=== PATIENT | female | born 1965 | race Caucasian/White ===

== ENCOUNTER 2020-03-13 13:41 | Outpatient (REF) | payer OTHER, SELFPAY ==
--- NOTE | 2020-03-13 13:48 | CT_ITS ---
EXAMINATION: CT ABDOMEN AND PELVIS WITHOUT AND WITH CONTRAST CLINICAL INFORMATION: Renal hydronephrosis. COMPARISON: Renal scan 12/07/2019 and 02/09/2020 TECHNIQUE: Multidetector volumetric imaging was performed of the abdomen and pelvis before and after the IV administration of 85 mL of Omnipaque 300 intravenous contrast. Sagittal and coronal reformatted images were obtained on the technologist's workstation. This CT examination was performed using dose optimization techniques as appropriate, variously including the following: *Automated exposure control *Adjustment of mA and/or kV according to patient size (this includes techniques or standardized protocols for targeted exams where dose is matched to indication/reason for exam; i.e. extremities or head) *Use of iterative reconstruction technique DLP: 675 mGy-cm FINDINGS: LUNG BASES: The lung bases are clear. LIVER, GALLBLADDER, AND BILIARY TREE: The liver is normal in size, shape, and attenuation. No focal hepatic lesion or biliary ductal dilatation is present. The gallbladder is unremarkable with no evidence of radiopaque gallstones, gallbladder wall thickening, or obvious pericholecystic inflammatory changes. PANCREAS: Unremarkable SPLEEN: Unremarkable ADRENAL GLANDS: Unremarkable KIDNEYS AND URETERS: The kidneys are normal in size, shape, and attenuation. There is a 5 mm radiopaque calculi mid pole right kidney without caliectasis. No additional radiopaque calculi seen. The right kidney measures 9.2 cm in length and left kidney measures 8.78 cm in length. Postcontrast there are bilateral symmetrical nephrograms. There is a nonenhancing 1 cm cyst lower pole left kidney with mild cortical thinning along the upper pole. No additional cysts seen in either kidneys. The right kidney cortex is maintained normal. There is contrast opacifying both kidney pelvises and the ureter without any intraluminal filling defect. The left mid and distal ureter are not well opacified. BLADDER: There are no radiopaque or bladder calculi, bladder wall thickening or intraluminal filling defect. GASTROINTESTINAL TRACT: There is scattered stool and gas seen throughout the colon without any significant distention. The small bowel loops are normal caliber. The stomach is nondistended. There is no free air or free fluid. ABDOMINAL WALL: There is a small umbilical hernia containing fat. LYMPH NODES: Normal VASCULAR: Unremarkable PELVIC VISCERA: There is no free air free fluid. OSSEOUS STRUCTURES: No lytic or sclerotic process. CT/CT abdomen pelvis wo/w con IMPRESSION: 1. Nonobstructive 5 mm radiopaque calculi mid pole right kidney. 2. Mild cortical thinning upper pole left kidney but kidney size appears almost symmetrical bilaterally. No enhancing renal mass or hydronephrosis.
[2020-03-13] MEDS: iohexoL 350 MG/ML 100 ML INFUS..BTL IV (15:41)
== END 2020-03-13 13:42 | disposition home or self-care (01) ==
LOC: HO.CT 13:41
PROVIDERS: PCP Internal Medicine; Visit Provider Urology
DX: N13.39 Other hydronephrosis (principal)
CPT/HCPCS: 74178

== ENCOUNTER → 2020-03-30 09:12 | Outpatient (BNVA) | payer OTHER, SELFPAY | PROVIDERS: PCP Internal Medicine; Visit Provider Urology | DX: N13.30 Unspecified hydronephrosis (principal) | CPT/HCPCS: 99212 ==

== ENCOUNTER → 2020-09-22 08:47 | Outpatient (BNVA) | payer OTHER, SELFPAY | PROVIDERS: PCP Internal Medicine; Visit Provider Urology | CPT/HCPCS: 99212 ==

== ENCOUNTER → 2023-03-20 12:45 | Outpatient (BNVA) | payer MEDICAID, SELFPAY | PROVIDERS: PCP Internal Medicine; Visit Provider Registered Nurse Emergency ==

== ENCOUNTER 2024-06-01 14:47 | Outpatient (AMB) | payer OTHER, SELFPAY ==
--- NOTE | 2024-06-01 15:12 | MHC.OFFVIS ---
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 The patient states that she has had 2 cortisone injections in the past which gave her no relief. She has tried physical therapy exercises which aggravated her pain. Her symptoms have gotten worse over the last few years in spite of continued non operative treatments. She has tried Tylenol, Robaxin, gabapentin and topical patches which gave her only mild relief. She did undergo cervical spine surgery in 2007 while living in [place]. Allergies cephalexin [Keflex] Allergy (Unknown, Verified 06/01/24 15:13) Unknown ciprofloxacin [Cipro] Allergy (Unknown, Verified 06/01/24 15:13) Unknown nitrofurantoin [Macrobid] Allergy (Unknown, Verified 06/01/24 15:13) Unknown penicillin V Allergy (Unknown, Verified 06/01/24 15:13) Unknown Medication List - Last Reconciled 06/01/24 by Sid Mejia MD clonidine HCl 0.1 mg PO BEDTIME duloxetine 30 mg PO DAILY gabapentin 900 mg PO BEDTIME lidocaine 5% 2 patches topical DAILY lorazepam mg PO meloxicam 15 mg PO DAILY pyridoxine (vitamin B6) 100 mg PO DAILY 90 days trazodone 100 mg PO BEDTIME zolpidem ER 12.5 mg PO BEDTIME [facility] Medical History (Updated 06/01/24 @ 15:31 by Sid Mejia MD) History of kidney infection Dysuria Right renal stone Left renal stone Other hydronephrosis Surgical History (Updated 05/28/24 @ 09:47 by AMMY Clarke) Hx of shoulder surgery History of carpal tunnel release of both wrists History of surgery Social History (Updated 06/01/24 @ 15:14 by AMMY Clarke) Patient Tobacco Use Status: Never used Tobacco Current occupational status: disabled Current occupation: rt handed Physical Exam Vital Signs: BMI result Body Mass Index 28.5 Const Other: Well-nourished well-developed very friendly female awake alert and oriented x3 in no acute distress Back/Spine/Pelvis Other: Low back examination shows right-sided paraspinal muscle tenderness, pain with range of motion, positive straight leg raise test on the right at 70 degrees, 4/5 strength with testing of her right hip flexors and knee extensors when compared to 5/5 strength on her left side Extrem Other: Right hip examination shows full range of motion when compared to her left hip, mild tenderness over her bursa, no overlying skin lesions Results Reviewed Results Reviewed: X-rays of the patient's right hip show mild diffuse joint space narrowing, no acute bony abnormalities Assessment & Plan Assessment & Plan (1) Low back pain radiating to right leg: Code(s): M54.50 - Low back pain, unspecified; M79.604 - Pain in right leg Category: Medical Plan Ms. Esparza presents with progressively worsening low back pain which radiates down her right leg most likely due to lumbar stenosis or a disc herniation. She also has intermittent right hip discomfort due to greater trochanteric bursitis. At this point the patient's hip pain is tolerable to her. I will send the patient for an MRI of her lumbar spine for further evaluation. I will see her back once the MRI is completed to discuss the findings. She will contact me prior to that time should any questions or concerns arise. Feel free to call me at any time should questions regarding her orthopedic management arise. I spent 21 minutes in reviewing the patient's records and imaging studies, seeing the patient and documenting in the medical record. Orders: Orders MR lumbar spine wo con Today M54.50 - Low back pain, unspecified, M79.604 - Pain in right leg XR knee LT 3V Today M25.562 - Pain in left knee Coding Level of Care Code New Pt Level 3 (85653) Complex EM visit Add On G2211 Diagnoses Low back pain radiating to right leg M54.50; M79.604
[2024-06-01 15:13] VITALS: BMI 28.5
== END 2024-06-01 15:30 | disposition home or self-care (01) ==
PROVIDERS: PCP Internal Medicine; Visit Provider Orthopaedic Surgery
DX: M54.50 Low back pain, unspecified (principal); M79.604 Pain in right leg
CPT/HCPCS: 99203; G2211

== ENCOUNTER 2024-06-01 15:01 | Outpatient (REF) | payer OTHER, SELFPAY ==
--- NOTE | ~2024-06-01 | XR_ITS ---
EXAMINATION: XR HIP 2 OR MORE VIEWS RIGHT HISTORY: M25.559 - Pain in unspecified hip COMPARISON: There are no prior studies available for comparison. FINDINGS: A single AP view of the pelvis and an additional view of the right hip are submitted. Osseous mineralization is normal. There is no fracture or dislocation. There is mild joint space narrowing. The soft tissues are unremarkable. XR/XR hip RT min 2V IMPRESSION: Mild joint space narrowing. Electronically signed by: Yusuf French MD 06/03/2024 02:40 PM [facility] BATIST[facility]
== END 2024-06-01 15:02 | disposition home or self-care (01) ==
LOC: HO.HOSX 15:01
PROVIDERS: Visit Provider Orthopaedic Surgery
DX: M25.561 Pain in right knee (principal); M54.50 Low back pain, unspecified; M79.604 Pain in right leg
CPT/HCPCS: 73502; 99202

== ENCOUNTER 2024-06-25 18:32 | Outpatient (REF) ==
--- NOTE | ~2024-06-25 | MR_ITS ---
MR/MR lumbar spine wo con IMPRESSION: Multilevel thoracolumbar spondylosis more conspicuous at L4-5 without compression upon neural elements. Electronically signed by: Dandy Bray MD 06/28/2024 07:59 AM CANDY
== END 2024-06-25 18:33 | disposition home or self-care (01) ==
LOC: HO.MRI 18:32
DX: M54.50 Low back pain, unspecified (principal); M79.604 Pain in right leg
CPT/HCPCS: 72148

== ENCOUNTER → 2024-06-25 18:32 | Outpatient (BNV) | payer OTHER, SELFPAY | PROVIDERS: PCP Internal Medicine; Visit Provider Radiology Diagnostic Radiology | DX: M47.896 Other spondylosis, lumbar region (principal) | CPT/HCPCS: 72148 ==

== ENCOUNTER 2024-07-15 11:12 | Outpatient (AMB) | payer OTHER, SELFPAY ==
[2024-07-15 11:19] VITALS: BMI 28.5
--- NOTE | 2024-07-15 11:19 | A.OFFVIS_ITS ---
Vital Signs 07/15/24 11:19 Height 5 ft 5 in Weight 171 lb BMI 28.5 Intake Visit Reasons: OV- Lumbar Spine MRI review Intake Note: Renae is a 59 year old female who presents with complaints of progressively worsening low back pain which radiates down her right leg as well as intermittent pain along the lateral aspect of her right hip. The patient states that she has had 2 cortisone injections in the past which gave her no relief. She has tried physical therapy exercises which aggravated her pain. Her symptoms have gotten worse over the last few years in spite of continued non operative treatments. She has tried Tylenol, Robaxin, gabapentin and topical patches which gave her only mild relief. She did undergo cervical spine surgery in 2007 while living in [place]. Allergies cephalexin [Keflex] Allergy (Unknown, Verified 07/15/24 11:19) Unknown ciprofloxacin [Cipro] Allergy (Unknown, Verified 07/15/24 11:19) Unknown nitrofurantoin [Macrobid] Allergy (Unknown, Verified 07/15/24 11:19) Unknown penicillin V Allergy (Unknown, Verified 07/15/24 11:19) Unknown Medication List - Last Reconciled 07/15/24 by Sid Mejia MD clonidine HCl 0.1 mg PO BEDTIME duloxetine 30 mg PO DAILY gabapentin 900 mg PO BEDTIME lidocaine 5% 2 patches topical DAILY lorazepam mg PO meloxicam 15 mg PO DAILY methylprednisolone (Medrol (Giovani)) PO PER PKG DIR pyridoxine (vitamin B6) 100 mg PO DAILY 90 days trazodone 100 mg PO BEDTIME zolpidem ER 12.5 mg PO BEDTIME [facility] Medical History (Updated 06/01/24 @ 15:31 by Sid Mejia MD) History of kidney infection Dysuria Right renal stone Left renal stone Other hydronephrosis Surgical History (Updated 05/28/24 @ 09:47 by AMMY Clarke) Hx of shoulder surgery History of carpal tunnel release of both wrists History of surgery Social History (Updated 06/01/24 @ 15:14 by AMMY Clarke) Patient Tobacco Use Status: Never used Tobacco Current occupational status: disabled Current occupation: rt handed Physical Exam Vital Signs: BMI result Body Mass Index 28.5 Const Other: Well-nourished well-developed very friendly female awake alert and oriented x3 in no acute distress Back/Spine/Pelvis Other: Low back examination shows right-sided paraspinal muscle tenderness, positive straight leg raise test on the right at 70 degrees, pain with range of motion Results Reviewed Results Reviewed: MRI report of the patient's lumbar spine shows evidence of diffuse degenerative disc disease, thecal sac narrowing, no acute bony abnormalities Assessment & Plan Assessment & Plan (1) Low back pain radiating to right leg: Code(s): M54.50 - Low back pain, unspecified; M79.604 - Pain in right leg Category: Medical Plan Ms. Esparza presents with low back pain which radiates down her right leg most likely due to degenerative disc disease. Thus, I will have the patient evaluated in our neurosurgery department here at [facility]. She will contact me prior to that time should her symptoms worsen in any way. Feel free to call me at any time should questions regarding her orthopedic management arise. I spent 20 minutes in reviewing the patient's records and imaging studies, seeing the patient and documenting in the medical record. Orders: Referrals Neuro Spine Referral M54.50 - Low back pain, unspecified, M79.604 - Pain in right leg Coding Level of Care Code Est Pt Level 3 (71220) Complex EM visit Add On G2211 Diagnoses Low back pain radiating to right leg M54.50; M79.604
--- OUTSIDE RECORDS SUMMARY | 2024-07-15 13:32 | XMS_ITS | Encounter Summary ---
Author Organization [facility] Address [address] [place] [address] Care Team Providers Care Hop Strainer Name Role Phone Ip Use Only - [facility] Primary Care Provider Unavailable Encounter Details Date Type Department Care Team (Late st Contact Info) Description 02/21/2020 Scanned Document [facility] Urologic Surgery [address] [place] [address] Coleman Saenz MD [address] [place] [address] [phone] Social History Tobacco Use Types Packs/Day Years Used Date Smoking Tobacco: Never Assessed Sex and Gender Information Value Date Recorded Sex Assigned at Not on file Gender Identity Not on file Sexual Orientation Not on file documented as of this encounter Plan of Treatment Not on file documented as of this encounter Visit Diagnoses Not on filedocumented in this encounter Care Teams Hop Strainer Relationship Specialty Start Date End Date Ip Use Only - [facility] PCP - General Internal Medicine 02/15/20 documented as of this encounter
--- OUTSIDE RECORDS SUMMARY | 2024-07-15 13:32 | XMS_ITS | Clinical Summary ---
Author Organization [facility] [address] [facility] Address [address] [place] [address] Phone Care Team Providers Care Veneer Glue Spreader Name Role Phone Unavailable Primary Care Provider Unavailabl e Allergies Active Allergy Reactions Criticality Noted Date Comments Cephalexin Monohydrate 04/09/2013 Ciprofloxacin 04/09/2013 Penicillins 04/09/2013 Medications norethindrone-e thinyl estradiol (June,) 1-20 mg-mcg per tablet Take 1 tablet by mouth 1 (one) time each day. 03/15/2015 Active citalopram (CeleXA) 10 mg tablet Take 3 tablets (30 mg total) by mouth 1 (one) time each day. 11/01/2013 Active potassium citrate (UROCIT-K) 5 mEq (540 mg) CR tablet Take by mouth. Active zolpidem (AMBIEN) 10 mg tablet Take 1 Tab by mouth at bedtime as needed for Insomnia. 10/26/2013 Active Active Problems Problem Noted Date Diagnosed Date Carpal tunnel syndrome of right wrist 04/13/2013 Overview (07/02/2024): Mild, EMG in [place] to 01/01/10 Chronic right shoulder pain 04/13/2013 Overview (07/02/2024): 12/2007, s/p right shoulder subacromial decompression, distal clavicle excision, labral and biceps debridement, Dr Mendieta in [place] Macrocytosis without anemia 04/13/2013 Overview (07/02/2024): MCV 102 from labs in October 2012 Chronic back pain 04/09/2013 Chronic neck pain 04/09/2013 Major depression 04/09/2013 Nephrolithiasis 04/09/2013 Encounters Date Type Department Care Team Description 07/06/2024 Telephone Gastroenterology - [address] [place] [address] Em King MA 06/18/2024 Telephone Gastroenterology - [address] [place] [address] Roderick Rojas MD 06/18/2024 Telephone Gastroenterology - [address] [place] [phone] Ed Alonzo MA 06/17/2024 Telephone Gastroenterology - [address] [place] [phone] Ed Alonzo MA from Last 3 Months Immunizations Name Administration Dates Next Due Tdap Tetanus diptheria acell ular pertussis (Boostrix; Adacel) 7yo and older 09/02/2013 Surgical History Surgery Date Site/Laterality Comments LITHOTRIPSY PROCEDURE: HISTORICAL LITHOTRIPSY; COMMENT: 1996, 2007, 5 lifetime episodes OTHER SURGICAL HISTORY 2008 PROCEDURE: [place] ARTHRD ANT INTERBODY MIN DSC CRV BELOW C2; COMMENT: C6-7-T1 ant discectomy w/decomp, darlin C6-T1, C7 complete corpectomy he is this SHOULDER SURGERY 12/2007 PROCEDURE: HISTORICAL SHOULDER SURGERY; COMMENT: Subacromial decompression, clavicle excision, labral and biceps debrided Family History Medical History Relation Name Comments Other: healthy Brother 1 Lung cancer Father smoker Other cancer Maternal Grandfather Leukemi a Other: Emphysema Maternal Grandmother Lung cancer Paternal Grandfather Other: unknown Paternal Grandmother Diabetes Sister 1 HTN Hypertension Sister 2 Other: healthy Sister 3 Relation Name Status Comments Brother 1 Brother 2 Alive Father lung ca, smoker Maternal Grandfather Maternal Grandmother Paternal Grandfather Paternal Grandmother Sister 1 Sister 2 Sister 3 Sister 4 Alive X3 Social History Tobacco Use Types Packs/Day Years Used Date Smoking Tobacco: Never Smokeless Tobacco: Never Alcohol Use Standard Drinks/Week Comments Yes 0 (1 standard drink = 0.6 oz pur e alcohol) Comments Unknown Sex and Gender Information Value Date Recorded Sex Assigned at Not on file Legal Sex Female 1:21 AM EST Gender Identity Not on file Sexual Orientation Not on file Obstetrics History Plan of Treatment Upcoming Encounters Date Type Department Care Team ([facility] st Contact Info) Description 07/29/2024 12:40 PM EDT Office Visit Gastroenterology - 299 [facility] [address] [phone] Daria Cartwright PA [address] [address] 08/17/2024 1:00 PM EDT Hospital Encounter [facility] [address] [place] [phone] Roderick Rojas MD [address] [address] Health Maintenance Due Date Last Done Comments Hepatitis B Vaccines (1 of 3 - 19+ 3-dose series) 1984 Pneumococcal Vaccine: 50+ Years (1 of 1 - PCV) 2015 Zoster Vaccines (1 of 2) 2015 Cervical Cancer Screening: P ap Smear 11/15/2016 11/15/2013, 11/15/2013 Colorectal Cancer Screening: Colonoscopy 04/21/2022 Depression Screening 04/21/2022 HIV Screening 04/21/2022 Hepatitis C Screening 04/21/2022 Social Influencers of Health Screening 04/21/2022 DTaP,Tdap,and Td Vaccines (2 - Td or Tdap) 09/03/2023 09/02/2013 COVID-19 Vaccine ( - 2023-2 5 season) 2024 Influenza Vaccine (#1) 2024 Breast Cancer Screening 09/25/2025 09/26/19 24, 03/16/2021 RSV Immunization Patients 60 + Years Old (1 - 1-dose 75+ series) 2040 HIB Vaccines Aged Out No longer eligi ble based on patient's age to complete this topic HPV Vaccines Aged Out No longer eligi ble based on patient's age to complete this topic Hepatitis A Vaccines Aged Out No long er eligible based on patient's age to complete this topic IPV Vaccines Aged Out No longer eligi ble based on patient's age to complete this topic MMR Vaccines Aged Out No longer eligi ble based on patient's age to complete this topic Meningococcal ACWY Vaccine Aged Out N o longer eligible based on patient's age to complete this topic Meningococcal B Vacine Aged Out No lo nger eligible based on patient's age to complete this topic Pneumococcal Vaccine: Pediatrics (0 to 5 Years) and At-Risk Patients (6 to 64 Years) Aged Out No longer eligible b ased on patient's age to complete this topic RSV Immunization Patients Under 20 months Aged Out No longer eligible b ased on patient's age to complete this topic Varicella Vaccines Aged Out No longer eligible based on patient's age to complete this topic Procedures Procedure Name Priority Date/Time Associated Diagnosis Comments EXTERNAL CT REPORT 06/25/[address] REPORT 06/10/2024 [facility] SCREENING DIGITAL Routine 09/26/2023 2:32 PM EDT Encounter for screening mammogram for malignant neoplasm of breast HPV Routine 11/15/2013 from Last 3 Months or Most Recently Relevant to Health Maintenance Results * External CT Report (06/25/2024) Only the most recent of2 resultswithin the time period is included. Anatomical Region Laterality Modality Computed Tomogra phy us Provider [facility] IM CT PROCEDURES Final Result * [facility] SCREENING DIGITAL (09/26/2023 2:32 PM EDT) Anatomical Region Laterality Modality Mammography 09/26/2023 1:59 PM EDT Narrative 09/26/2023 2:32 PM EDT [facility] Diagnostic Imaging Department [address] [place] [address] Patient: ??CHRISTINE ESPARZA ?/Age/Sex: 1965 - 58 - F Unit#: ??[id number] ? Location/Status: ??SPDIMAM/REG CLI ? Mnemonic/Ordering Site: ??DIGSC/SPMAM Ordering Physician: ??KAVON AZAR MD [facility] Screening Digital - 09/26/23 - 1421 Report Status:Signed EXAM: [facility] Screening Digital EXAM DATE AND TIME: 09/26/2023 2:22 PM HISTORY: ??Annual screening COMPARISON: ??Multiple exams dating back to 2012 TECHNIQUE: Bilateral digital breast tomosynthesis was performed in the CC and MLO projections. Computer aided detection with GILUPI 3D 3.1 was employed. TISSUE DENSITY: b. There are scattered areas of fibroglandular density. FINDINGS: No suspicious masses, grouped microcalcifications, or areas of architectural distortion are seen. The skin and vascularity are unremarkable. IMPRESSION: Stable mammographic appearance of the breasts. ??No evidence of malignancy is seen. A negative mammogram in the presence of a clinically suspicious palpable abnormality does not preclude the possibility of malignancy or alter the indications for biopsy. BI-RADS: ??Category 1: Negative RECOMMENDATION(S): 1: Routine screening mammogram BILATERAL in 1 year. 3341F, 7025F Dictating Physician: ??CHRISTI CARROLL MD Electronically Signed by: ??CHRISTI CARROLL MD Dic Date/Time: ??09/26/23 1431 Sign date/Time: ??09/26/23 1432 Procedure Note Christi Carroll MD - 01/05/2024 [facility] Diagnostic Imaging Department [address] [place] [id number] Patient: CHRISTINE ESPARZA.O.B./Age/Sex: 1965 - 58 - F Unit#: [id number] Location/Status: SPDIMAM/REG CLI Mnemonic/Ordering Site: [facility] Ordering Physician: KAVON AZAR MD [facility] Screening Digital - 09/26/23 - 1421 Report Status:Signed EXAM: [facility] Screening Digital EXAM DATE AND TIME: 09/26/2023 2:22 PM HISTORY: Annual screening COMPARISON: Multiple exams dating back to 2012 TECHNIQUE: Bilateral digital breast tomosynthesis was performed in the CCand MLO projections. Computer aided detection with GILUPI 3D 3.1was employed. TISSUE DENSITY: b. There are scattered areas of fibroglandular density. FINDINGS: No suspicious masses, grouped microcalcifications, or areas ofarchitectural distortion are seen. The skin and vascularity are unremarkable. IMPRESSION: Stable mammographic appearance of the breasts. No evidence of malignancyis seen. A negative mammogram in the presence of a clinically suspicious palpable abnormality does not preclude the possibility of malignancy or alter the indications for biopsy. BI-RADS: Category 1: Negative RECOMMENDATION(S): 1: Routine screening mammogram BILATERAL in 1 year. 3341F, 7025F Dictating Physician: CHRISTI CARROLL MD Electronically Signed by: CHRISTI CARROLL MD Dic Date/Time: 09/26/23 143 Sign date/Time: 09/26/23 143 Kavon Azar MD IMG BI PROCEDURES Final Result * Hm Cervical Cancer Screening: HPV (11/15/2013) Cervical Cancer Screening: HPV negative, abstracted us Historical Provider HEALTH MAINTENANCE Final Result from Last 3 Months or Most Recently Relevant to Health Maintenance Insurance [facility] Member Subscriber Plan / Payer (Ef fective 2023-Present) Name:Christine Esparza Relation to Subscriber:Self Name:Christine Esparza Payer ID:[id number] Group ID:[id number] Type:Not on file Address: [place] [address] [address] [id number]
--- OUTSIDE RECORDS SUMMARY | 2024-07-15 13:32 | XMS_ITS | Encounter Summary ---
Author Organization [facility] Address [address] [place] [address] Care Team Providers Care Water Main Installer Helper Name Role Phone Ip Use Only - [facility] Primary Care Provider Unavailable Encounter Details Date Type Department Care Team (Late st Contact Info) Description 02/21/2020 Scanned Document [facility] Urologic Surgery [address] [place] [address] Coleman Saenz MD [address] [place] [phone] Social History Tobacco Use Types Packs/Day Years Used Date Smoking Tobacco: Never Assessed Sex and Gender Information Value Date Recorded Sex Assigned at Not on file Gender Identity Not on file Sexual Orientation Not on file documented as of this encounter Plan of Treatment Not on file documented as of this encounter Visit Diagnoses Not on filedocumented in this encounter Care Teams Water Main Installer Helper Relationship Specialty Start Date End Date Ip Use Only - [facility] PCP - General Internal Medicine 02/15/20 documented as of this encounter
--- OUTSIDE RECORDS SUMMARY | 2024-07-15 13:32 | XMS_ITS | Encounter Summary ---
Author Organization [facility] [place] [address] Care Team Providers Care Grain Oilseed Or Pasture Farm Worker Name Role Phone Unavailable Primary Care Provider Unavailabl e Encounter Details Date Type Department Care Team (Late st Contact Info) Description 07/06/2024 Telephone Gastroenterology - [address] [place] [phone] Em King MA Social History Tobacco Use Types Packs/Day Years [...] on file documented as of this encounter Progress Notes * Em King MA - 07/06/2024 11:55 AM EST Spoke to Dr. Lashawn EUBANKS and msg below given. * Em King MA - 07/06/2024 11:55 AM EST ----- Message from Lizeth Rojas MD sent at 07/05/2024 3:11 PM EST ----- Please let Dr Kavon Yoo's nurse/PA know that the CT looks as expected after cholecystectomy. He ordered the CT but we are happy to see if there are ongoing GI issues (eg abd pain) ty documented in this encounter Plan of Treatment Upcoming Encounters Date Type Department Care Team (Late st Contact Info) Description 07/29/2024 12:40 PM EDT Office Visit Gastroenterology - 299 [facility] [address] [phone] Daria Cartwright PA [address] [address] 08/17/2024 1:00 PM EDT Hospital Encounter [facility] Endoscopy [address] [place] [phone] Roderick Rojas MD [address] [address] documented as of this encounter Visit Diagnoses Not on filedocumented in this encounter
--- OUTSIDE RECORDS SUMMARY | 2024-07-15 13:32 | XMS_ITS | Encounter Summary ---
Author Organization [facility] Address [address] [place] [address] Care Team Providers Care Set Up Worker Name Role Phone Unavailable Primary Care Provider Unavailabl e Encounter Details Date Type Department Care Team (Late Contact Info) Description 06/18/2024 Telephone Gastroenterology - 299 [facility] [address] [phone] Roderick Rojas MD [address] [address] Social History Tobacco Use Types Packs/Day Years [...] as of this encounter Progress Notes * Ed Alnozo MA - 07/09/2024 3:13 PM EST N/a documented in this encounter Plan of Treatment Upcoming Encounters Date Type Department Care Team (Late Contact Info) Description 07/29/2024 12:40 PM EDT Office Visit Gastroenterology - 299 [address] [facility] [address] [phone] Daria Cartwright PA [address] [address] 08/17/2024 1:00 PM EDT Hospital Encounter [facility] Endoscopy [address] [place] [phone] Roderick Rojas MD [address] [address] documented as of this encounter Visit Diagnoses Diagnosis Colon cancer screening- Primary Special screening for malignant neoplasms, colon documented in this encounter
--- OUTSIDE RECORDS SUMMARY | 2024-07-15 13:32 | XMS_ITS | Clinical Summary ---
Author Organization [facility] Address [address] [place] [address] Care Team Providers Care Operating Room Nurse Name Role Phone Ip Use Only - [facility] Primary Care Provider Unavailable Social History Tobacco Use Types Packs/Day Years Used Date Smoking Tobacco: Never Assessed Sex and Gender Information Value Date Recorded Sex Assigned at Not on file Gender Identity Not on file Sexual Orientation Not on file Plan of Treatment Health Maintenance Due Date Last Done Comments Hepatitis C Virus Screening 1965 HIV Screening 1978 DTaP/Tdap/Td Vaccines (1 - Tdap) 1984 Hepatitis B Vaccines (1 of 3 - 19+ 3-dose series) 1984 Pap Smear (Ages 21-65) 1986 Mammogram 2005 Colonoscopy 2010 Pneumococcal Vaccines 50+ (1 of 1 - PCV) 2015 Zoster (Shingles) Vaccine (1 of 2) 2015 Influenza Vaccine 12/18/2023 COVID-19 Vaccine ( - 2023-2 5 season) 2024 Pneumococcal Vaccine: Pediat paulie (0-5 Years) and At-Risk Patients (6 to 49 Years) Aged Out No longer eligible b ased on patient's age to complete this topic Care Teams Operating Room Nurse Relationship Specialty Start Date End Date Ip Use Only - [facility] PCP - General Internal Medicine 02/15/20
--- OUTSIDE RECORDS SUMMARY | 2024-07-15 13:32 | XMS_ITS | Encounter Summary ---
Author Organization [facility] Address [address] [place] [address] Care Team Providers Care Pipeline Executive Name Role Phone Ip Use Only - [facility] Primary Care Provider Unavailable Encounter Details Date Type Department Care Team (Late st Contact Info) Description 02/21/2020 Scanned Document [facility] Urologic Surgery [address] [place] [address] Coleman Saenz MD [address] [place] [address] [phone] Social History Tobacco Use Types Packs/Day Years Used Date Smoking Tobacco: Never Assessed Sex and Gender Information Value Date Recorded Sex Assigned at Not on file Gender Identity Not on file Sexual Orientation Not on file documented as of this encounter Plan of Treatment Not on file documented as of this encounter Visit Diagnoses Not on filedocumented in this encounter Care Teams Pipeline Executive Relationship Specialty Start Date End Date Ip Use Only - [facility] PCP - General Internal Medicine 02/15/20 documented as of this encounter
--- OUTSIDE RECORDS SUMMARY | 2024-07-15 13:32 | XMS_ITS | Encounter Summary ---
Author Organization [facility] Address [address] [place] [address] Care Team Providers Care Property Coordinator Name Role Phone Ip Use Only - [facility] Primary Care Provider Unavailable Encounter Details Date Type Department Care Team (Late st Contact Info) Description 02/21/2020 Scanned Document [facility] Urologic Surgery [address] [place] [address] Coleman Saenz MD [address] [place] [address] [phone] Social History Tobacco Use Types Packs/Day Years Used Date Smoking Tobacco: Never Assessed Sex and Gender Information Value Date Recorded Sex Assigned at Not on file Gender Identity Not on file Sexual Orientation Not on file documented as of this encounter Plan of Treatment Not on file documented as of this encounter Visit Diagnoses Not on filedocumented in this encounter Care Teams Property Coordinator Relationship Specialty Start Date End Date Ip Use Only - [facility] PCP - General Internal Medicine 02/15/20 documented as of this encounter
--- OUTSIDE RECORDS SUMMARY | 2024-07-15 13:32 | XMS_ITS | Encounter Summary ---
Author Organization [facility] Address [address] [place] [address] Care Team Providers Care Manager Tax Name Role Phone Ip Use Only - [facility] Primary Care Provider Unavailable Encounter Details Date Type Department Care Team (Late st Contact Info) Description 02/21/2020 Scanned Document [facility] Urologic Surgery [address] [place] [address] Coleman Saenz MD [address] [place] [address] [phone] Social History Tobacco Use Types Packs/Day Years Used Date Smoking Tobacco: Never Assessed Sex and Gender Information Value Date Recorded Sex Assigned at Not on file Gender Identity Not on file Sexual Orientation Not on file documented as of this encounter Plan of Treatment Not on file documented as of this encounter Visit Diagnoses Not on filedocumented in this encounter Care Teams Manager Tax Relationship Specialty Start Date End Date Ip Use Only - [facility] PCP - General Internal Medicine 02/15/20 documented as of this encounter
--- OUTSIDE RECORDS SUMMARY | 2024-07-15 13:32 | XMS_ITS | Encounter Summary ---
Author Organization [facility] Address [address] [place] [address] Care Team Providers Care First Calender Worker Name Role Phone Unavailable Primary Care Provider Unavailabl e Encounter Details Date Type Department Care Team (Late Contact Info) Description 06/17/2024 Telephone Gastroenterology - [address] [place] [phone] Ed Alonzo MA Social History Tobacco Use Types Packs/Day [...] of this encounter Progress Notes * Ed Alonzo MA - 06/17/2024 3:29 PM EST CALLED PT TO R/S COLON DR. ROJAS PT. LMOM documented in this encounter Plan of Treatment Upcoming Encounters Date Type Department Care Team (Late st Contact Info) Description 07/29/2024 12:40 PM EDT Office Visit Gastroenterology - 299 [address] [phone] Daria Cartwright PA [address] [address] 08/17/2024 1:00 PM EDT Hospital Encounter [facility] Endoscopy [address] [place] [phone] Roderick Rojas MD 229 [facility] [address] [place] [address] documented as of this encounter Visit Diagnoses Not on filedocumented in this encounter
--- OUTSIDE RECORDS SUMMARY | 2024-07-15 13:32 | XMS_ITS | Encounter Summary ---
Author Organization [facility] Address [address] [place] [address] Care Team Providers Care Stile Ripsaw Operator Name Role Phone Unavailable Primary Care Provider Unavailabl e Encounter Details Date Type Department Care Team (Late st Contact Info) Description 06/18/2024 Telephone Gastroenterology - [address] [place] [phone] Ed Alonzo MA Social History Tobacco Use [...] as of this encounter Progress Notes * Annabel Dalton - 06/18/2024 11:03 AM EST RETURNING CALL * Ed Alonzo MA - 06/18/2024 10:54 AM EST CALLED PT 2ND TIME TO SCHEDULE COLON. LMOM. documented in this encounter Plan of Treatment Upcoming Encounters Date Type Department Care Team (Late st Contact Info) Description 07/29/2024 12:40 PM EDT Office Visit Gastroenterology - [address] [place] [phone] Daria Cartwright PA [address] [address] 08/17/2024 1:00 PM EDT Hospital Encounter [facility] Endoscopy [address] [place] [phone] Roderick Rojas MD [address] [address] documented as of this encounter Visit Diagnoses Not on filedocumented in this encounter
--- OUTSIDE RECORDS SUMMARY | 2024-07-15 13:32 | XMS_ITS | Encounter Summary ---
Author Organization [facility] Address [address] [place] [address] Care Team Providers Care Multimedia Author Name Role Phone Ip Use Only - [facility] Primary Care Provider Unavailable Encounter Details Date Type Department Care Team (Late st Contact Info) Description 02/21/2020 Scanned Document [facility] Urologic Surgery [address] [place] [address] Coleman Saenz MD [address] [place] [address] [phone] Social History Tobacco Use Types Packs/Day Years Used Date Smoking Tobacco: Never Assessed Sex and Gender Information Value Date Recorded Sex Assigned at Not on file Gender Identity Not on file Sexual Orientation Not on file documented as of this encounter Plan of Treatment Not on file documented as of this encounter Visit Diagnoses Not on filedocumented in this encounter Care Teams Multimedia Author Relationship Specialty Start Date End Date Ip Use Only - [facility] PCP - General Internal Medicine 02/15/20 documented as of this encounter
== END 2024-07-15 11:58 | disposition home or self-care (01) ==
PROVIDERS: PCP Internal Medicine; Visit Provider Orthopaedic Surgery
DX: M54.50 Low back pain, unspecified (principal); M79.604 Pain in right leg
CPT/HCPCS: 99213

== ENCOUNTER → 2024-07-15 11:12 | Outpatient (BNVA) | payer OTHER, SELFPAY | PROVIDERS: PCP Internal Medicine; Visit Provider Orthopaedic Surgery | DX: M54.50 Low back pain, unspecified (principal); M79.604 Pain in right leg | CPT/HCPCS: 99212 ==

== ENCOUNTER 2024-07-16 10:17 | Outpatient (AMB) | payer OTHER, SELFPAY ==
[2024-07-16 10:33] VITALS: BMI 23.0
--- NOTE | 2024-07-16 10:33 | A.SPINEOV_ITS ---
Vital Signs 07/16/24 10:33 Height 5 ft 5 in Weight 138 lb BMI 23.0 Intake Visit Reasons: LBP Intake Note: Ms. Esparza is here today c/o low back pain. Rotor Casting Machine Setup Operator Required: No Allergies cephalexin [Keflex] Allergy (Severe, Verified 07/16/24 10:35) Rash ciprofloxacin [Cipro] Allergy (Severe, Verified 07/16/24 10:35) Rash nitrofurantoin [Macrobid] Allergy (Severe, Verified 07/16/24 10:35) Rash penicillin V Allergy (Severe, Verified 07/16/24 10:35) Rash Physical Exam Vital Signs: BMI result Body Mass Index 23.0 Assessment & Plan Assessment & Plan (1) Chronic SI joint pain: Code(s): M53.3 - Sacrococcygeal disorders, not elsewhere classified; G89.29 - Other chronic pain Category: Medical Plan Dear Dr Mejia, Thank you for referring Mrs Esparza to our office today. She is a very nice 59-year-old female who presents with a history of about 16 years or so of right- sided low back pain going down her right leg. 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 She ultimately needed to end up having an anterior cervical diskectomy and fusion for some discs which herniated in her neck. However in the process though she did notice that she had the right-sided low back pain going down her leg. Through the years she tried physical therapy, anti-inflammatories, lidocaine patches, heat, ice. Nothing seems to be helping it. She ultimately got an MRI showing some mild disc degeneration and came to see us. The pain is aggravated with sitting for prolonged periods of time and for getting up and walking will also make it worse. PMH: Reasonably healthy, she has history of kidney stones, occasionally will need surgery to have them cleared out, anterior cervical fusion, repair of a torn right labrum, anxiety, Social hx: She has not smoke cigarettes but does smoke marijuana daily, does not drink Medications: Lorazepam, clonidine, Lidoderm, gabapentin, zolpidem, duloxetine Allergies: Penicillin, Keflex, Cipro Physical exam: Awake alert oriented no acute distress, strength and reflexes normal. Positive finger Kain test, positive ALEJANDRA test on the right leg reproducing some of her back pain. Imaging review: Lumbar MRI done at [facility] shows some very mild disc degeneration at L4-5 otherwise normal alignment and no nerve compression Impression: 59-year-old female presents with right-sided low back pain going down her right leg that is been present now for about 14 years after she was in an accident in a warehouse. Her MRI more less looks normal, I do not see much in the way of any degeneration other than just some mild disc disease at L4-5. There is no nerve impingement. The pain does localize well to her right SI joint. It is well-known that the SI joint can become inflamed after trauma. It can also mimic a radiculopathy. I will send her to Dr. Daniel to get a right SI joint cortisone injection and see if we can localize where her pain is coming from. If that does not help, I am not sure if she may need some other kind of intervention or neuromodulation. Thank you for allowing us to care for your patient. The total time spent with this visit with this patient was 45 minutes reviewing history, physical exam, lumbar imaging review, and implementation of treatment plan or further diagnostic testing Thompson Prather MD,PhD [facility] Orders: Referrals Physiatry Referral G89.29 - Other chronic pain, M53.3 - Sacrococcygeal disorders, not elsewhere classified Coding Level of Care Code New Pt Level 4 (35079) Diagnoses Chronic SI joint pain M53.3; G89.29
--- OUTSIDE RECORDS SUMMARY | 2024-07-16 11:31 | XMS_ITS | Encounter Summary ---
Author Organization [facility] Address [address] [place] [address] Care Team Providers Care Optical Lens Manufacturing Tech Name Role Phone Ip Use Only - [facility] Primary Care Provider Unavailable Encounter Details Date Type Department Care Team (Late st Contact Info) Description 02/21/2020 Scanned Document [facility] Urologic Surgery [address] [place] [address] Coleman Saenz MD [address] [place] [address] [phone] Social History Tobacco Use Types Packs/Day Years Used Date Smoking Tobacco: Never Assessed Sex and Gender Information Value Date Recorded Sex Assigned at Not on file Gender Identity Not on file Sexual Orientation Not on file documented as of this encounter Plan of Treatment Not on file documented as of this encounter Visit Diagnoses Not on filedocumented in this encounter Care Teams Optical Lens Manufacturing Tech Relationship Specialty Start Date End Date Ip Use Only - [facility] PCP - General Internal Medicine 02/15/20 documented as of this encounter
--- OUTSIDE RECORDS SUMMARY | 2024-07-16 11:31 | XMS_ITS | Encounter Summary ---
Author Organization [facility] Address [address] [place] [address] Care Team Providers Care Lpn Name Role Phone Ip Use Only - [facility] Primary Care Provider Unavailable Encounter Details Date Type Department Care Team (Late st Contact Info) Description 02/21/2020 Scanned Document [facility] Urologic Surgery [address] [place] [address] Coleman Saenz MD [address] [place] [address] [phone] Social History Tobacco Use Types Packs/Day Years Used Date Smoking Tobacco: Never Assessed Sex and Gender Information Value Date Recorded Sex Assigned at Not on file Gender Identity Not on file Sexual Orientation Not on file documented as of this encounter Plan of Treatment Not on file documented as of this encounter Visit Diagnoses Not on filedocumented in this encounter Care Teams Lpn Relationship Specialty Start Date End Date Ip Use Only - [facility] PCP - General Internal Medicine 02/15/20 documented as of this encounter
--- OUTSIDE RECORDS SUMMARY | 2024-07-16 11:31 | XMS_ITS | Encounter Summary ---
Author Organization [facility] Address [address] [place] [address] Care Team Providers Care Instructor Wastewater Treatment Plant Name Role Phone Ip Use Only - [facility] Primary Care Provider Unavailable Encounter Details Date Type Department Care Team (Late st Contact Info) Description 02/21/2020 Scanned Document [facility] Urologic Surgery [address] [place] [address] Coleman Saenz MD [address] [place] [address] [phone] Social History Tobacco Use Types Packs/Day Years Used Date Smoking Tobacco: Never Assessed Sex and Gender Information Value Date Recorded Sex Assigned at Not on file Gender Identity Not on file Sexual Orientation Not on file documented as of this encounter Plan of Treatment Not on file documented as of this encounter Visit Diagnoses Not on filedocumented in this encounter Care Teams Instructor Wastewater Treatment Plant Relationship Specialty Start Date End Date Ip Use Only - [facility] PCP - General Internal Medicine 02/15/20 documented as of this encounter
--- OUTSIDE RECORDS SUMMARY | 2024-07-16 11:31 | XMS_ITS | Clinical Summary ---
Author Organization [facility] Address [address] [place] [address] Care Team Providers Care Gold Tooler Name Role Phone Ip Use Only - [...] age to complete this topic Care Teams Gold Tooler Relationship Specialty Start Date End Date Ip Use Only - [facility] PCP - General Internal Medicine 02/15/20
--- OUTSIDE RECORDS SUMMARY | 2024-07-16 11:31 | XMS_ITS | Encounter Summary ---
Author Organization [facility] Address [address] [place] [address] Care Team Providers Care Photo Journalist Name Role Phone Ip Use Only - [facility] Primary Care Provider Unavailable Encounter Details Date Type Department Care Team (Late st Contact Info) Description 02/21/2020 Scanned Document [facility] Urologic Surgery [address] [place] [address] Coleman Saenz MD [address] [place] [address] [phone] Social History Tobacco Use Types Packs/Day Years Used Date Smoking Tobacco: Never Assessed Sex and Gender Information Value Date Recorded Sex Assigned at Not on file Gender Identity Not on file Sexual Orientation Not on file documented as of this encounter Plan of Treatment Not on file documented as of this encounter Visit Diagnoses Not on filedocumented in this encounter Care Teams Photo Journalist Relationship Specialty Start Date End Date Ip Use Only - [facility] PCP - General Internal Medicine 02/15/20 documented as of this encounter
--- OUTSIDE RECORDS SUMMARY | 2024-07-16 11:31 | XMS_ITS | Encounter Summary ---
Author Organization [facility] Address [address] [place] [address] Care Team Providers Care Process Control Operator Name Role Phone Unavailable Primary Care Provider Unavailabl e Encounter Details Date Type Department Care Team (Late st Contact Info) Description 06/18/2024 Telephone Gastroenterology - [address] [place] [phone] Ed Alonzo MA Social History Tobacco Use [...] - [address] [place] [phone] Daria Cartwright PA [address] [address] 08/17/2024 1:00 PM EDT Hospital Encounter [facility] Endoscopy [address] [place] [phone] Roderick Rojas MD [address] [address] documented as of this encounter Visit Diagnoses Not on filedocumented in this encounter
--- OUTSIDE RECORDS SUMMARY | 2024-07-16 11:31 | XMS_ITS | Encounter Summary ---
Author Organization [facility] Address [address] [place] [address] Care Team Providers Care Freight Rate Specialist Name Role Phone Ip Use Only - [facility] Primary Care Provider Unavailable Encounter Details Date Type Department Care Team (Late st Contact Info) Description 02/21/2020 Scanned Document [facility] Urologic Surgery [address] [place] [address] Coleman Saenz MD [address] [place] [address] [phone] Social History Tobacco Use Types Packs/Day Years Used Date Smoking Tobacco: Never Assessed Sex and Gender Information Value Date Recorded Sex Assigned at Not on file Gender Identity Not on file Sexual Orientation Not on file documented as of this encounter Plan of Treatment Not on file documented as of this encounter Visit Diagnoses Not on filedocumented in this encounter Care Teams Freight Rate Specialist Relationship Specialty Start Date End Date Ip Use Only - [facility] PCP - General Internal Medicine 02/15/20 documented as of this encounter
--- OUTSIDE RECORDS SUMMARY | 2024-07-16 11:31 | XMS_ITS | Encounter Summary ---
Author Organization [facility] [place] [address] Care Team Providers Care Inspector Material Disposition Name Role Phone Unavailable Primary Care Provider Unavailabl e Encounter Details Date Type Department Care Team (Late st Contact Info) Description 07/06/2024 Telephone Gastroenterology - [address] [place] [phone] Em King MA Social History Tobacco Use [...] PM EDT Office Visit Gastroenterology - 299 [facility] [address] [phone] Daria Cartwright PA [address] [address] 08/17/2024 1:00 PM EDT Hospital Encounter [facility] Endoscopy [address] [place] [phone] Roderick Rojas MD [address] [address] documented as of this encounter Visit Diagnoses Not on filedocumented in this encounter
--- OUTSIDE RECORDS SUMMARY | 2024-07-16 11:31 | XMS_ITS | Encounter Summary ---
Author Organization [facility] Address [address] [place] [address] Care Team Providers Care Budget Director Name Role Phone Unavailable Primary Care Provider Unavailabl e Encounter Details Date Type Department Care Team (Late Contact Info) Description 06/17/2024 Telephone Gastroenterology - [address] [place] [phone] Ed Alonzo MA Social History Tobacco Use [...] Office Visit Gastroenterology - [address] [phone] Daria Cartwright PA [address] [address] 08/17/2024 1:00 PM EDT Hospital Encounter [facility] Endoscopy [address] [place] [phone] Roderick Rojas MD 229 [facility] [address] [place] [address] documented as of this encounter Visit Diagnoses Not on filedocumented in this encounter
--- OUTSIDE RECORDS SUMMARY | 2024-07-16 11:31 | XMS_ITS | Encounter Summary ---
Author Organization [facility] Address [address] [place] [address] Care Team Providers Care Gauger Delivery Name Role Phone Unavailable Primary Care Provider Unavailabl e Encounter Details Date Type Department Care Team (Late Contact Info) Description 06/18/2024 Telephone Gastroenterology - 299 [facility] [address] [phone] Roderick Rojas MD [address] [address] Social History Tobacco Use Types Packs/Day Years [...] Progress Notes * Ed Alonzo MA - 07/09/2024 3:13 PM EST N/a documented in this encounter Plan of Treatment Upcoming Encounters Date Type Department Care Team (Late Contact Info) Description 07/29/2024 12:40 PM EDT Office Visit Gastroenterology - 299 [address] [facility] [address] [phone] Daria Cartwright PA [address] [address] 08/17/2024 1:00 PM EDT Hospital Encounter [facility] Endoscopy [address] [place] [phone] Roderick Rojas MD [address] [address] documented as of this encounter Visit Diagnoses Diagnosis Colon cancer screening- Primary Special screening for malignant neoplasms, colon documented in this encounter
--- OUTSIDE RECORDS SUMMARY | 2024-07-16 11:31 | XMS_ITS | Encounter Summary ---
Author Organization [facility] Address [address] [place] [address] Care Team Providers Care Animated Cartoons Painter Name Role Phone Ip Use Only - [facility] Primary Care Provider Unavailable Encounter Details Date Type Department Care Team (Late st Contact Info) Description 02/21/2020 Scanned Document [facility] Urologic Surgery [address] [place] [phone] Coleman Saenz MD [address] [place] [phone] Social History Tobacco Use Types Packs/Day Years Used Date Smoking Tobacco: Never Assessed Sex and Gender Information Value Date Recorded Sex Assigned at Not on file Gender Identity Not on file Sexual Orientation Not on file documented as of this encounter Plan of Treatment Not on file documented as of this encounter Visit Diagnoses Not on filedocumented in this encounter Care Teams Animated Cartoons Painter Relationship Specialty Start Date End Date Ip Use Only - [facility] PCP - General Internal Medicine 02/15/20 documented as of this encounter
--- OUTSIDE RECORDS SUMMARY | 2024-07-16 11:31 | XMS_ITS | Clinical Summary ---
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 Name Role Phone Unavailable Primary Care Provider [...] wrist 04/13/2013 Overview (07/02/2024): Mild, EMG in [place] to 01/01/10 Chronic right shoulder pain 04/13/2013 Overview (07/02/2024): 12/2007, s/p right shoulder subacromial decompression, distal clavicle excision, labral and biceps debridement, Dr Mendieta in [place] Macrocytosis without anemia 04/13/2013 Overview (07/02/2024): MCV 102 from labs in October 2012 Chronic back pain 04/09/2013 Chronic neck pain 04/09/2013 Major depression 04/09/2013 Nephrolithiasis 04/09/2013 Encounters Date Type Department Care Team Description 07/06/2024 Telephone Gastroenterology - [address] [place] [phone] Em King MA 06/18/2024 Telephone Gastroenterology - [address] [place] [phone] Roderick Rojas MD 06/18/2024 Telephone Gastroenterology - [address] [place] [phone] Ed Alonzo MA 06/17/2024 Telephone Gastroenterology - [address] [place] [phone] Ed Alonzo MA from Last 3 Months Immunizations Name Administration Dates Next Due Tdap Tetanus diptheria acell ular pertussis (Boostrix; Adacel) 7yo and older 09/02/2013 Surgical History Surgery Date Site/Laterality Comments LITHOTRIPSY PROCEDURE: HISTORICAL LITHOTRIPSY; COMMENT: 1996, 2007, 5 lifetime episodes OTHER SURGICAL HISTORY 2008 PROCEDURE: [place] ARTHRD ANT INTERBODY MIN DSC CRV BELOW [...] Upcoming Encounters Date Type Department Care Team ([facility] st Contact Info) Description 07/29/2024 12:40 PM EDT Office Visit Gastroenterology - 299 [facility] [address] [phone] Daria Cartwright PA [address] [address] 08/17/2024 1:00 PM EDT Hospital Encounter [facility] Endoscopy [address] [place] [phone] Roderick Rojas MD [address] [address] Health Maintenance Due Date Last Done Comments [...] CT REPORT 06/25/[address] REPORT 06/10/2024 [facility] SCREENING DIGITAL Routine 09/26/2023 2:32 PM EDT Encounter for screening mammogram for malignant neoplasm of breast HPV Routine 11/15/2013 from Last 3 Months or Most Recently Relevant to Health Maintenance Results * External CT Report (06/25/2024) Only the most recent of2 resultswithin the time period is included. Anatomical Region Laterality Modality Computed Tomogra phy us Provider [facility] PROCEDURES Final Result * [facility] SCREENING DIGITAL (09/26/2023 2:32 PM EDT) Anatomical Region Laterality Modality Mammography 09/26/2023 1:59 PM EDT Narrative 09/26/2023 2:32 PM EDT [facility] Diagnostic Imaging Department [address] [place] [id number] Patient: ??CHRISTINE ESPARZA ?/Age/Sex: 1965 - 58 - F Unit#: ??[id number] ? Location/Status: ??SPDIMAM/REG CLI ? Mnemonic/Ordering Site: ??DIGSC/SPMAM Ordering Physician: ??KAVON AZAR MD [facility] Screening Digital - 09/26/23 - 1421 Report Status:Signed EXAM: [facility] Screening Digital EXAM DATE AND TIME: 09/26/2023 2:22 PM HISTORY: ??Annual screening COMPARISON: ??Multiple exams dating back to 2012 TECHNIQUE: Bilateral digital breast tomosynthesis was performed in the CC and MLO projections. Computer aided detection with iversity 3D 3.1 was employed. TISSUE DENSITY: b. [...] Procedure Note Christi Carroll MD - 01/05/2024 [facility] Diagnostic Imaging Department [address] [place] [id number] Patient: CHRISTINE ESPARZA.O.B./Age/Sex: 1965 - 58 - F Unit#: [id number] Location/Status: SPDIMAM/REG CLI Mnemonic/Ordering Site: [facility] Ordering Physician: KAVON AZAR MD [facility] Screening Digital - 09/26/23 - 1421 Report Status:Signed EXAM: [facility] Screening Digital EXAM DATE AND TIME: 09/26/2023 2:22 PM HISTORY: Annual screening COMPARISON: Multiple exams dating back to 2012 TECHNIQUE: Bilateral digital breast tomosynthesis was performed in the CCand MLO projections. Computer aided detection with iversity 3D 3.1was employed. TISSUE DENSITY: b. There [...] Most Recently Relevant to Health Maintenance Insurance [facility] Member Subscriber Plan / Payer (Ef fective 2023-Present) Name:Christine Esparza Relation to Subscriber:Self Name:Christine Esparza Payer ID:[id number] Group ID:[id number] Type:Not on file Address: [place] [address] [address] [id number]
== END 2024-07-16 11:54 | disposition home or self-care (01) ==
PROVIDERS: PCP Internal Medicine; Referring Provider Orthopaedic Surgery; Visit Provider Physician Assistant
DX: M53.3 Sacrococcygeal disorders, not elsewhere classified (principal); G89.29 Other chronic pain
CPT/HCPCS: 99204

== ENCOUNTER → 2024-07-16 10:17 | Outpatient (BNVA) | payer OTHER, SELFPAY | PROVIDERS: PCP Internal Medicine; Referring Provider Orthopaedic Surgery; Visit Provider Physician Assistant | DX: M53.3 Sacrococcygeal disorders, not elsewhere classified (principal); G89.29 Other chronic pain | CPT/HCPCS: 99202 ==